=== PATIENT | male | born 1955 | race Caucasian/White ===

== ENCOUNTER 2021-08-22 04:02 | Emergency (ER) | payer MEDICARE, OTHER ==
[2021-08-22 04:33] LABS: BILIRUBIN,URINE NEGATIVE (NEGATIVE); GLUCOSE, URINE (UA) NEGATIVE (NEGATIVE); KETONES,URINE (UA) 15 mg/dL (NEGATIVE); LEUKOCYTE ESTERASE, URINE NEGATIVE (NEGATIVE); NITRITE,URINE NEGATIVE (NEGATIVE); OCCULT BLOOD,URINE NEGATIVE (NEGATIVE); PROTEIN,URINE NEGATIVE (NEGATIVE); UROBILINOGEN,URINE 0.2 (NORMAL) E.U./dL (NORMAL)
[2021-08-22 04:39] LABS: CLARITY,URINE CLEAR (CLEAR)
[2021-08-22 04:54] LABS: BASOPHILS % (AUTO) 0.2 %; EOSINOPHILS % (AUTO) 0.3 %; HCT - HEMATOCRIT 45.6 % (42.0-52.0); HGB - HEMOGLOBIN 15.5 g/dL (14.0-18.0); LYMPHOCYTES # (AUTO) 1.4 10^3/uL (1.5-3.5); LYMPHOCYTES % (AUTO) 10.9 %; MEAN CORPUSCULAR HEMOGLOBIN 31.2 pg (27.0-31.0); MEAN CORPUSCULAR VOLUME 91.8 fL (80.0-94.0); MEAN PLATELET VOLUME 8.9 fL (7.4-11.4); MONOCYTES # (AUTO) 0.8 10^3/uL (0.0-1.0); MONOCYTES % (AUTO) 6.6 %; NEUTROPHILS # (AUTO) 10.2 10^3/uL (1.5-6.6); NEUTROPHILS % (AUTO) 81.6 %; PLT - PLATELET COUNT 289 10^3/uL (130-450); RED BLOOD COUNT 4.97 10^6/uL (4.70-6.10); RED CELL DISTRIBUTION WIDTH 13.1 % (12.0-15.0); WHITE BLOOD COUNT 12.6 x10^3/uL (4.8-10.8)
--- NOTE | 2021-08-22 04:59 | ED Physician Documentation ---
PD HPI ABD PAIN - Stated complaint Stated Complaint: STOMACH PX - Chief complaint Chief Complaint: Abd Pain - History obtained from History obtained from: Patient - Additional information Additional information: Patient is a 65-year-old male with a history of hypertension presenting for evaluation of generalized abdominal pain that started 12 hours ago (error in triage note). He reports associated nausea but no vomiting, diarrhea, constipation or dysuria. Pain is all over and feels stabbing. Nothing makes it better or worse. He also reports recently testing positive for COVID and having symptoms now for 9 days of Nonproductive cough,Fatigue. He denies chest pain or difficulty breathing. He denies back pain, headache, dysuria, hematuria, lower extremity pain or swelling.He tried Pepto-Bismol for symptoms without any improvement.His at the bedside also tested positive for COVID. Review of Systems Constitutional: denies: Fever Nose: denies: Congestion Cardiac: denies: Chest pain / pressure Respiratory: reports: Cough. denies: Dyspnea GI: reports: Abdominal Pain, Nausea. denies: Vomiting : denies: Dysuria Skin: denies: Rash Musculoskeletal: denies: Back pain Neurologic: reports: Generalized weakness PD PAST MEDICAL HISTORY - Past Medical History Past Medical History: Yes Cardiovascular: Hypertension Respiratory: None Neuro: None Endocrine/Autoimmune: None GI: None : Benign prostate hypertrophy, Other HEENT: None Psych: None Musculoskeletal: None Derm: None - Past Surgical History Past Surgical History: Yes Ortho: Other - Present Medications Home Medications: Ambulatory Orders Medication Instructions Recorded Confirmed Amlodipine Besylate [Norvasc] 10 mg PO DAILY 08/22/21 08/22/21 Apixaban [Eliquis] 5 mg ORAL BID #60 tablet 08/22/21 Metoprolol Tartrate [Lopressor] 25 mg PO BID 30 Days #60 tablet 08/22/21 Nebivolol HCl 10 mg PO DAILY 08/22/21 08/22/21 Ondansetron Odt [Zofran] 4 mg TL Q6H PRN #10 tablet 08/22/21 Ondansetron Odt [Zofran] 4 mg TL Q6H PRN #10 tablet 08/22/21 Oxycodone HCl/Acetaminophen 1 - 2 each PO Q6H PRN #14 tablet 08/22/21 [Percocet 5-325 mg Tablet] lisinopriL [Lisinopril] 20 mg PO DAILY 08/22/21 08/22/21 - Allergies Allergies/Adverse Reactions: Allergies Allergy/AdvReac Type Severity Reaction Status Date / Time No Known Drug Allergies Allergy Verified 08/22/21 18:20 - Social History Does the pt smoke?: No Smoking Status: Never smoker Does the pt drink ETOH?: Yes Does the pt have substance abuse?: No - Immunizations Immunizations are current?: Yes - POLST Patient has POLST: No PD ED PE NORMAL - General General: Alert and oriented X 3, No acute distress, Well developed/nourished - HEENT HEENT: Atraumatic, Moist mucous membranes - Neck Neck: Supple, no meningeal sign - Cardiac Cardiac: No murmur, Strong equal pulses, Other (Tachycardic,Irregularly irregular) - Respiratory Respiratory: No respiratory distress, Clear bilaterally - Abdomen Abdomen: Normal bowel sounds, Soft, Non distended, Other (Generalized abdominal tenderness, more so in the epigastric region) - Derm Derm: No rash - Extremities Extremities: No edema - Neuro Neuro: Normal speech - Psych Psych: Normal mood Results - Vitals Vitals: Vital Signs - 24 hr 08/22/21 08/22/21 08/22/21 04:14 04:36 04:49 Temperature 36.5 C Heart Rate 133 H Respiratory 19 17 17 Rate Blood Pressure 145/95 H O2 Saturation 97 08/22/21 08/22/21 08/22/21 05:02 05:55 08:00 Temperature Heart Rate 122 H 116 H 96 Respiratory 16 16 17 Rate Blood Pressure 136/107 H 120/88 H 116/87 H O2 Saturation 98 100 99 08/22/21 08:33 Temperature Heart Rate 95 Respiratory 21 Rate Blood Pressure 116/88 H O2 Saturation 99 Oxygen O2 Source Room air - EKG (time done) 0457 Rate: Rate (enter#) (120) Rhythm: Atrial fibrillation Anderson: Normal Compare to prior EKG: Old EKG unavailable - Labs Labs: Laboratory Tests 08/22/21 08/22/21 08/22/21 04:08 04:45 04:45 WBC 12.6 H RBC 4.97 Hgb 15.5 Hct 45.6 MCV 91.8 MCH 31.2 H MCHC 34.0 RDW 13.1 Plt Count 289 MPV 8.9 Neut # (Auto) 10.2 H Lymph # (Auto) 1.4 L [place] # (Auto) 0.8 Eos # (Auto) 0.0 Baso # (Auto) 0.0 Absolute Nucleated RBC 0.00 Nucleated RBC % 0.0 Sodium 143 Potassium 3.6 Chloride 105 Carbon Dioxide 24 Anion Gap 14.0 H BUN 17 Creatinine 0.7 Estimated GFR (MDRD) 113 Glucose 127 H Calcium 9.5 Total Bilirubin 0.9 AST 28 ALT 33 Alkaline Phosphatase 65 Troponin I High Sens Total Protein 7.5 Albumin 4.0 Globulin 3.5 Albumin/Globulin Ratio 1.1 Lipase 36 Urine Color YELLOW Urine Clarity CLEAR Urine pH 7.0 Ur Specific [place] 1.020 Urine Protein NEGATIVE Urine Glucose (UA) NEGATIVE Urine Ketones 15 H Urine Occult Blood NEGATIVE Urine Nitrite NEGATIVE Urine Bilirubin NEGATIVE Urine Urobilinogen 0.2 (NORMAL) Ur Leukocyte Esterase NEGATIVE Ur Microscopic Review NOT INDICATED Urine Culture Comments NOT INDICATED 08/22/21 04:45 WBC RBC Hgb Hct MCV MCH MCHC RDW Plt Count MPV Neut # (Auto) Lymph # (Auto) [place] # (Auto) Eos # (Auto) Baso # (Auto) Absolute Nucleated RBC Nucleated RBC % Sodium Potassium Chloride Carbon Dioxide Anion Gap BUN Creatinine Estimated GFR (MDRD) Glucose Calcium Total Bilirubin AST ALT Alkaline Phosphatase Troponin I High Sens 4.2 Total Protein Albumin Globulin Albumin/Globulin Ratio Lipase Urine Color Urine Clarity Urine pH Ur Specific [place] Urine Protein Urine Glucose (UA) Urine Ketones Urine Occult Blood Urine Nitrite Urine Bilirubin Urine Urobilinogen Ur Leukocyte Esterase Ur Microscopic Review Urine Culture Comments PD MEDICAL DECISION MAKING - ED course Complexity details: reviewed results, re-evaluated patient, d/w patient ED course: Patient with reports of generalized abdominal pain. Noted to be tachycardic on arrival with EKG findings of atrial fibrillation. Patient denies a history of this in the past but does report feeling episodes of anxiety and palpitations that he never addressed. Patient has mild generalized abdominal discomfort. Exam does not suggest mesenteric ischemia. Labs reviewed without significant findings. CT scan unremarkable. Patient did have improvement in his symptoms while in the emergency department. He remained tachycardic and did require rate control with a dose of Cardizem. He did not require further doses of IV medication. We had a long discussion regarding at the new finding of atrial fibrillation. His [id number] score is 2. I discussed the benefits and risks of anticoagulation and he is agreeable to starting on Eliquis. Additionally we also reviewed his current medication regiment. He is on Bystolic, lisinopril and amlodipine. We will hold the Bystolic and start him on metoprolol. He does have a PA he sees at a [facility] [place] and is aware he needs to call this morning to arrange for close follow-up as he may need a referral to cardiology or an echo for this new onset atrial fibrillation.As he is rate controlled and without any current symptoms I do not believe he requires hospitalization and can be managed as an outpatient. I did review strict return precautions. Patient and are in agreement with the plan. Departure - Departure Disposition: Home, Self Care Clinical Impression: New onset atrial fibrillation, COVID-19, Epigastric abdominal pain Condition: Stable Instructions: Atrial Fibrillation Dc, ED Afib, ED Abdominal Pain Unkn Cause Male Prescriptions: Apixaban [Eliquis] 5 mg ORAL BID #60 tablet Metoprolol Tartrate [Lopressor] 25 mg PO BID 30 Days #60 tablet Ondansetron Odt [Zofran] 4 mg TL Q6H PRN #10 tablet PRN Reason: Nausea / Vomiting Comments: Rui - You were evaluated for abdominal pain your labs were reassuring and did not show any significant abnormalities. Your CAT scan of the abdomen and pelvis also did not show any acute findings. You were found to be in atrial fibrillation. This is an irregular rhythm. This rhythm does put you at the risk of developing clots which can cause strokes, heart attacks or blood clots in the lungs. [facility] were [facility] medication. At this time I do feel you are stable for discharge with close outpatient follow-up. You may need to have an ultrasound of your heart called an echocardiogram and a referral to a coater operator. Please call your primary care provider today to have an appointment to be seen within the next 3 to 5 days. I am also going to start you on a new medication called metoprolol. Please take this medication and stop using Bystolic. You will also be started on a blood thinner called Eliquis. We have already discussed the risks and benefits of this medication. If it anytime you are having any worsening symptoms such as pain, difficulty breathing, lightheadedness, weakness please return immediately to the emergency department. I have sent your prescriptions to [facility] in [place]. Discharge Date/Time: 08/22/21 08:41
[2021-08-22] MEDS: ONDANSETRON 4 MG/2 ML VIAL IVP STA ×2 (05:06→07:17)
[2021-08-22] MEDS: MORPHINE 2 MG/ML CARPUJECT IVP STA ×2 (05:06→07:20)
[2021-08-22 05:15] LABS: ALBUMIN/GLOBULIN RATIO 1.1 (1.0-2.2); BILIRUBIN,TOTAL 0.9 mg/dL (0.2-1.0); CALCIUM 9.5 mg/dL (8.5-10.3); CREATININE 0.7 mg/dL (0.6-1.2); POTASSIUM 3.6 mmol/L (3.5-5.0); TOTAL PROTEIN 7.5 g/dL (6.7-8.2)
[2021-08-22] MEDS: SODIUM CHLORIDE 0.9% 1,000 ML IV STA (05:19)
[2021-08-22] MEDS: diltiaZEM INJ 5 MG/ML VIAL IVP STA (07:24)
--- NOTE | 2021-08-22 07:38 | CT Report ---
PROCEDURE: Abdomen/Pelvis WO INDICATIONS: generalized abd pain TECHNIQUE: Noncontrast 5 mm thick sections acquired from the diaphragms to the symphysis. 5 mm coronal and sagi ttal reformats were then performed. For radiation dose reduction, the following was used: automated exposure control, adjustment of mA and/or kV according to patient size. COMPARISON: None. FINDINGS: Image quality: Excellent. ABDOMEN: Lung bases: Lung bases are clear. Heart size is normal. Solid organs: Liver and spleen are normal in size. Small hypoattenuating lesions noted in the liver which could represent cysts or small hemangiomas. Gallbladder is partially contracted, but within no rmal limits. Pancreas is normal in contours. No adrenal nodules. Kidneys are normal in size, witho ut hydronephrosis or nephrolithiasis. 6.2 cm exophytic left renal cysts. Peritoneum and bowel: Unenhanced bowel loops demonstrate normal wall thickness and caliber. No free fluid or air. The appendix is normal. Nodes and vessels: No retroperitoneal or mesenteric adenopathy by size criteria. Aorta and inferior vena cava are normal in caliber. Miscellaneous: No ventral hernias. PELVIS: Genitourinary: Bladder wall thickness is normal. Miscellaneous: No inguinal adenopathy. Fat-containing right inguinal hernia. Bones: No suspicious bony lesions. No vertebral body compression fractures. Spine degenerative disc disease and facet arthropathy are noted. IMPRESSION: No acute disease process. No free fluid or free air. No dilated loops of bowel. Appendix is normal. Reviewed by: Deidre Jorgensen MD, PhD on 08/22/2021 7:35 AM PDT Approved by: Deidre Jorgensen MD, PhD on 08/22/2021 7:35 AM PDT Station ID: [id number]
[2021-08-22] MEDS: MAG HYDROX/AL HYDROX/SIMETH 30 ML UDC PO STA (07:48)
[2021-08-22] MEDS: LIDOCAINE VISCOUS 2% 15 ML UDC MM STA ×2 (07:48)
--- NOTE | 2021-08-22 08:08 | XRAY Report ---
PROCEDURE: Chest 1 View X-Ray INDICATIONS: cough TECHNIQUE: One view of the chest was acquired. COMPARISON: None FINDINGS: Surgical changes and devices: None. Lungs and pleura: No pleural effusions or pneumothorax. Lungs are clear. Mediastinum: Mediastinal contours appear normal. Heart size is normal. Bones and chest wall: No suspicious bony lesions. Overlying soft tissues appear unremarkable. IMPRESSION: No acute cardiopulmonary disease process. Reviewed by: Deidre Jorgensen MD, PhD on 08/22/2021 8:07 AM PDT Approved by: Deidre Jorgensen MD, PhD on 08/22/2021 8:07 AM PDT Station ID: [id number]
[2021-08-22] MEDS: APIXABAN 5 MG TABLET PO STA (08:32)
[2021-08-22] MEDS: METOPROLOL TARTRATE 50 MG TABLET PO STA (08:32)
[2021-08-22 08:34] VITALS: BP 116/88
== END 2021-08-22 08:41 | disposition home or self-care (01) ==
LOC: ED 04:02
DX: U07.1 COVID-19 (principal); I10 Essential (primary) hypertension; I48.91 Unspecified atrial fibrillation; Z79.01 Long term (current) use of anticoagulants
CPT/HCPCS: 36415; 80053; 81001; 81003; 83690; 84484; 85025; 87086; 93005; 96361; 96374; 96375; 96376; 99284

== ENCOUNTER 2021-08-22 18:09 | Emergency (ER) | payer MEDICARE, OTHER ==
[2021-08-22 18:52] LABS: BASOPHILS % (AUTO) 0.2 %; EOSINOPHILS % (AUTO) 0.1 %; HCT - HEMATOCRIT 46.2 % (42.0-52.0); HGB - HEMOGLOBIN 15.5 g/dL (14.0-18.0); LYMPHOCYTES % (AUTO) 6.9 %; MEAN CORPUSCULAR HEMOGLOBIN 31.2 pg (27.0-31.0); MEAN CORPUSCULAR HGB CONC 33.5 g/dL (32.0-36.0); MEAN PLATELET VOLUME 8.6 fL (7.4-11.4); MONOCYTES # (AUTO) 1.4 10^3/uL (0.0-1.0); MONOCYTES % (AUTO) 10.3 %; NEUTROPHILS # (AUTO) 11.4 10^3/uL (1.5-6.6); NEUTROPHILS % (AUTO) 82.1 %; PLT - PLATELET COUNT 279 10^3/uL (130-450); RED BLOOD COUNT 4.97 10^6/uL (4.70-6.10); RED CELL DISTRIBUTION WIDTH 13.2 % (12.0-15.0); WHITE BLOOD COUNT 13.8 x10^3/uL (4.8-10.8)
[2021-08-22 19:04] LABS: ALBUMIN/GLOBULIN RATIO 1.1 (1.0-2.2); BILIRUBIN,TOTAL 1.2 mg/dL (0.2-1.0); CREATININE 0.7 mg/dL (0.6-1.2); POTASSIUM 3.7 mmol/L (3.5-5.0); TOTAL PROTEIN 7.5 g/dL (6.7-8.2)
--- NOTE | 2021-08-22 19:38 | ED Physician Documentation ---
PD HPI ABD PAIN - Stated complaint Stated Complaint: ABD PAIN - Chief complaint Chief Complaint: Abd Pain - History obtained from History obtained from: Patient - History of Present Illness Timing - onset: Today Timing - duration: Days (1) Timing - details: Gradual onset Pain level max: 6 Pain level now: 5 Quality: Aching, Pain Location: All over / everywhere, Epigastric Radiation: No: Chest, , Lower back, Left flank, Left shoulder, Right flank, Right shoulder, Upper back Improved by: Other (nothing) Worsened by: Other (nothing) Associated symptoms: No: Fever, Nausea, Vomiting, Hematemesis, Diarrhea, Constipation, Melena, Hematochezia, Dysuria, Hematuria, Chest pain Recently seen: Emergency Dept - Additional information Additional information: Patient is a 65-year-old male who tested positive for COVID last week. He has developed abdominal pain as well. Was seen here last night and had no acute findings on laboratory testing other than a mild leukocytosis. Negative CT scan. He states that the pain has continued today. Has not taken anything for the pain at home. Described as diffuse, nonradiating. He states it does feel better when he passes flatus. Review of Systems Constitutional: denies: Fever, Chills GI: denies: Vomiting, Diarrhea Skin: denies: Rash Musculoskeletal: denies: Neck pain, Back pain Neurologic: denies: Headache PD PAST MEDICAL HISTORY - Past Medical History Past Medical History: Yes Cardiovascular: Hypertension Respiratory: None Neuro: None Endocrine/Autoimmune: None GI: None : Benign prostate hypertrophy, Other HEENT: None Psych: None Musculoskeletal: None Derm: None - Past Surgical History Past Surgical History: Yes Ortho: Other - Present Medications Home Medications: Ambulatory Orders Medication Instructions Recorded Confirmed Amlodipine Besylate [Norvasc] 10 mg PO DAILY 08/22/21 08/22/21 Apixaban [Eliquis] 5 mg ORAL BID #60 tablet 08/22/21 Metoprolol Tartrate [Lopressor] 25 mg PO BID 30 Days #60 tablet 08/22/21 Nebivolol HCl 10 mg PO DAILY 08/22/21 08/22/21 Ondansetron Odt [Zofran] 4 mg TL Q6H PRN #10 tablet 08/22/21 Ondansetron Odt [Zofran] 4 mg TL Q6H PRN #10 tablet 08/22/21 Oxycodone HCl/Acetaminophen 1 - 2 each PO Q6H PRN #14 tablet 08/22/21 [Percocet 5-325 mg Tablet] lisinopriL [Lisinopril] 20 mg PO DAILY 08/22/21 08/22/21 - Allergies Allergies/Adverse Reactions: Allergies Allergy/AdvReac Type Severity Reaction Status Date / Time No Known Drug Allergies Allergy Verified 08/22/21 18:20 - Social History Does the pt smoke?: No Smoking Status: Never smoker Does the pt drink ETOH?: Yes Does the pt have substance abuse?: No - Immunizations Immunizations are current?: Yes - POLST Patient has POLST: No PD ED PE NORMAL - Vitals Vital signs reviewed: Yes - General General: Alert and oriented X 3, No acute distress - HEENT HEENT: PERRL - Neck Neck: Supple, no meningeal sign - Cardiac Cardiac: RRR, Strong equal pulses - Respiratory Respiratory: No respiratory distress, Clear bilaterally - Abdomen Abdomen: Normal bowel sounds, Soft, Non tender, Non distended, Other (Small umbilical hernia, easily reducible.) - Derm Derm: Warm and dry - Extremities Extremities: No edema - Neuro Neuro: Alert and oriented X 3 - Psych Psych: Normal mood, Normal affect Results - Vitals Vitals: Vital Signs - 24 hr 08/22/21 08/22/21 18:17 19:39 Temperature 36.4 C L Heart Rate 90 115 H Respiratory 16 20 Rate Blood Pressure 134/92 H 142/109 H O2 Saturation 95 95 Oxygen O2 Source Room air - Labs Labs: Laboratory Tests 08/22/21 08/22/21 18:45 18:45 WBC 13.8 H RBC 4.97 Hgb 15.5 Hct 46.2 MCV 93.0 MCH 31.2 H MCHC 33.5 RDW 13.2 Plt Count 279 MPV 8.6 Neut # (Auto) 11.4 H Lymph # (Auto) 1.0 L [place] # (Auto) 1.4 H Eos # (Auto) 0.0 Baso # (Auto) 0.0 Absolute Nucleated RBC 0.00 Nucleated RBC % 0.0 Sodium 139 Potassium 3.7 Chloride 101 Carbon Dioxide 25 Anion Gap 13.0 BUN 13 Creatinine 0.7 Estimated GFR (MDRD) 113 Glucose 134 H Calcium 9.0 Total Bilirubin 1.2 H AST 29 ALT 32 Alkaline Phosphatase 65 Total Protein 7.5 Albumin 4.0 Globulin 3.5 Albumin/Globulin Ratio 1.1 Lipase 51 PD MEDICAL DECISION MAKING - ED course Complexity details: reviewed old records, reviewed results, re-evaluated patient, considered differential (No changes with eating or drinking. Does not appear consistent With mesenteric ischemia.), d/w patient, d/w family ED course: 65-year-old male with abdominal pain, possible lymphadenitis secondary to COVID. He had a full work-up this morning. We will prescribe pain medication for home and have him follow-up with his doctor. No significant lab abnormalities other than a mild leukocytosis. No peritoneal signs. Patient counseled regarding signs and symptoms for which I believe and urgent re-evaluation would be necessary. Patient with good understanding of and agreement to plan and is comfortable going home at this time This document was made in part using voice recognition software. While efforts are made to proofread this document, sound alike and grammatical errors may occur. Departure - Departure Disposition: Home, Self Care Clinical Impression: COVID-19, New onset atrial fibrillation Abdominal pain Qualifiers: Abdominal location: generalized Qualified Code(s): R10.84 - Generalized abdominal pain Condition: Good Instructions: ED Abdominal Pain Unkn Cause Male Follow-Up: Chetan Scott MD [Primary Care Provider] - Within 1 week Prescriptions: Oxycodone HCl/Acetaminophen [Percocet 5-325 mg Tablet] 1 - 2 each PO Q6H PRN #14 tablet PRN Reason: pain Ondansetron Odt [Zofran] 4 mg TL Q6H PRN #10 tablet PRN Reason: Nausea / Vomiting Comments: Your abdominal pain is likely related to your COVID infection. This can cause inflammation in the lymph nodes in the abdomen that cause pain. We will trial you on pain medication for home and have you follow-up with your doctor for further care. Drink plenty of fluids. Return if you worsen. Your CT scan results from this morning are below. [facility] were sent to [facility] IMPRESSION: No acute disease process. No free fluid or free air. No dilated loops of bowel. Appendix is normal. I am prescribing a short course of narcotic pain medication for you. These are potentially dangerous and addictive medications that should be used carefully. These medications may constipate you. Take an [id number]-[id number] stool softener (docusate) twice daily with plenty of water while taking these medications. If you go 24 hours without a bowel movement, take [id number]-gocoded miralax, per package instructions. Do not drink or drive while taking these medications. If you received narcotic or sedating medications while in the emergency department, do not drive for 24 hours. Store this medication in a safe, secure place and out of reach of children. It is a violation of federal law to give or sell this medication to another person or to use in a manner other than prescribed. The ED will not refill narcotic prescriptions, including prescriptions lost or stolen. To dispose of unwanted medications: 1. [facility] [address] [facility] [place] has a medication drop box. They accept prescription medications (in pill form) Friday through Friday 9:00 a.m. to 5:00 p.m. 2. [facility] [employer] accepts prescription medications (in pill form only) for disposal year round. Call for more information. 3. Contact the [facility] for the next [facility] sponsored prescription drug collection event. , [phone], or [phone]; Discharge Date/Time: 08/22/21 19:46
[2021-08-22 19:40] VITALS: BP 142/109
[2021-08-22] MEDS: oxyCODONE 5 MG TABLET PO STA (19:40)
== END 2021-08-22 19:46 | disposition home or self-care (01) ==
LOC: ED 18:09
DX: U07.1 COVID-19 (principal); R10.84 Generalized abdominal pain; I10 Essential (primary) hypertension; I48.91 Unspecified atrial fibrillation; Z79.01 Long term (current) use of anticoagulants
CPT/HCPCS: 36415; 71045; 74176; 80053; 81003; 83690; 84484; 85025; 93005; 96361; 96374; 96375; 96376; 99284; A9270; 81001; 87086

== ENCOUNTER 2021-08-30 10:39 | Outpatient (CLI) | payer MEDICARE | END 2021-08-30 10:40 | disposition home or self-care (01) | LOC: DI 10:39 | PROVIDERS: ATTEND Nurse Practitioner Family | DX: I48.91 Unspecified atrial fibrillation (principal); I51.7 Cardiomegaly; I35.1 Nonrheumatic aortic (valve) insufficiency; I34.0 Nonrheumatic mitral (valve) insufficiency; I77.810 Thoracic aortic ectasia | CPT/HCPCS: 93306 ==

== ENCOUNTER 2023-03-04 10:05 | Outpatient (CLI) | payer MEDICARE ==
--- NOTE | 2023-03-04 16:59 | XRAY Report ---
PROCEDURE: Ribs w/PA Chest LT INDICATIONS: RIB PAIN TECHNIQUE: 3 views of the left ribs were acquired, along with a single view chest. COMPARISON: None. FINDINGS: Surgical changes and devices: None. Bones and chest wall: No fractures or dislocations. No suspicious bony lesions. Overlying soft tis sues appear unremarkable. Lungs and pleura: No pleural effusions or pneumothorax. Lungs appear clear. Mediastinum: Mediastinal contours appear normal. Heart size is normal. IMPRESSION: No displaced rib fracture or pneumothorax. Reviewed by: Dilcia Diaz MD on 03/04/2023 4:57 PM PST Approved by: Dilcia Diaz MD on 03/04/2023 4:57 PM PST Station ID: [id number]
== END 2023-03-04 10:06 | disposition home or self-care (01) ==
LOC: DI.S 10:05
PROVIDERS: ATTEND Registered Nurse
DX: R07.81 Pleurodynia (principal)